=== PATIENT | male | born 1960 | race Caucasian/White ===

== ENCOUNTER → 2017-02-01 | Outpatient (CLI) | payer OTHER ==
[~2017-02-01] MED LIST: ACETAMINOPHEN PO; CARAFATE1 GM; CIPRO PO; IBUPROFEN800 MG PO; MOTRIN400 MG PO; PEPCID AC20 M2 PO; PROTONIX PO; VICODIN 5/1 TAB 5/50 PO
[2017-02-01 17:37] LABS: HEMATOCRIT 44.4 % (38.0-50.0); HEMOGLOBIN 15.1 gm/dL (13.0-16.0); MEAN CELL VOLUME 96.4 FL (83-96); MEAN CORPUSCULAR HEMOGLOBIN 32.7 PG (28-34); MEAN PLATELET VOLUME 9.5 FL (6.5-11.5); RED BLOOD COUNT 4.6 X10e (3.90-5.60); RED CELL DISTRIBUTION WIDTH 13.2 % (11.0-15.5); WHITE BLOOD COUNT 8.8 X10e3 (4.0-10.5)
[2017-02-01 17:39] LABS: URINE APPEARANCE CLEAR; URINE BILIRUBIN NEG (NEG); URINE BLOOD 2+ (NEG); URINE COLOR YELLOW; URINE GLUCOSE NEG (NEG); URINE KETONE NEG (NEG); URINE LEUKOCYTE ESTERASE NEG (NEG); URINE NITRATE NEG (NEG); URINE PH 6.5 (5-8); URINE PROTEIN NEG (NEG); URINE SPECIFIC GRAVITY 1.017 (1.003-1.035)
[2017-02-01 17:42] LABS: U HYALINE CASTS AUWI 0-2 /[LPF]; URINE BACTERIA AUWI NEG (NEGATIVE); URINE SQUAMOUS EPITHELIAL CELL NONE SEEN /[HPF]; UWBCS1 AUWI 0-2 (0-5)
[2017-02-01 17:59] LABS: ALBUMIN SERUM 4.1 g/dL (3.5-5.0); BILIRUBIN,TOTAL 0.7 mg/dL (0.2-2.0); CALCIUM SERUM 8.7 mg/dL (8.4-10.2); POTASSIUM 3.9 mmol/L (3.5-5.1)
== END | disposition home or self-care (01) ==
LOC: CLAB 17:11
PROVIDERS: Specialist
DX: R10.9 Unspecified abdominal pain (principal)
CPT/HCPCS: 36415; 80053; 81003; 85027

== ENCOUNTER → 2017-02-02 | Outpatient (CLI) | payer OTHER ==
--- NOTE | ~2017-02-02 | CT4 ---
[facility] A Service of [facility] RADIOLOGY TEXT RESULTS PATIENT: SHIRLEY MURILLO LOCATION: [facility] : 64 UNIT #: [id number] AGE: [address]: Eric Lou MD SEX: M ORDER DR: [id number] [facility] [address] [place], [place] [address] [id number] O MR#: [id number] [facility] #: [id number] NAME: SHIRLEY MURILLO : 1960 SEX: M STUDY DATE/TIME: 02/02/2017 9:15 UNIT: [facility] ROOM: STUDY DESCRIPTION: CT Abd and Pelv Wo Cont Attending Physician: Eric Lou M.D. Referring Physician: Eric Lou M.D. Ordering Physician: Eric Lou M.D. Primary Care Physician: Shelia Stanford M.D. MEDICAL IMAGING REPORT This report is preliminary unless electronic signature is present EXAM CT abdomen and pelvis 02/02/2017 HISTORY Kidney stones. Right flank pain for 48 hours. Pain similar to previous stones. TECHNIQUE CT abdomen and pelvis performed without administration of oral or intravenous contrast. This CT exam was performed with one or more of the following radiation dose reduction techniques: automatic exposure control, adjustment of mA and/or kV according to patient size, and iterative reconstruction. COMPARISON 09/28/2011 FINDINGS The lung bases are clear. The inferior heart and pericardium are unremarkable. Liver normal. Status post cholecystectomy. Spleen, pancreas, adrenal glands unremarkable. The left kidney and ureter are unremarkable. Right kidney shows a 1 cm x 5 mm calculus in the mid-right kidney. Not significantly changed from prior examination. No right-sided hydronephrosis, hydroureter or ureterolithiasis. No calculi along the course of the urethra. CT Pelvis: No inguinal adenopathy. No pelvic or retroperitoneal adenopathy. The distal esophagus, stomach, small bowel, appendix unremarkable. Colon shows uncomplicated left hemicolon diverticulosis. Scattered atherosclerotic arterial calcifications. No acute-appearing bony abnormality. Degenerative changes in the spine. IMPRESSION [facility] A Service of [facility] RADIOLOGY TEXT RESULTS PATIENT: SHIRLEY MURILLO LOCATION: [facility] : 64 UNIT #: [id number] AGE: [address]: Eric Lou MD SEX: M ORDER DR: 1. No evidence of urinary obstruction. There is an approximately 1 cm x 5 mm and the right mid renal calculus unchanged from September 2011. No ureteral or bladder calculi are seen. No perinephric inflammatory change. 2. Status post cholecystectomy. 3. Pancreas and appendix unremarkable. 4. Uncomplicated left hemicolon diverticulosis. 5. Remainder of study unremarkable. Dictated by... Shirley Cabrera M.D. THIS IS AN ELECTRONICALLY VERIFIED REPORT Shirley Cabrera M.D. at 02/03/2017 6:36 PM ADELINEK/juancarlos TD: 02/02/2017 11:57 JOB #: [id number] MEDICAL IMAGING REPORT Page 1 of 1 COPY
== END | disposition home or self-care (01) ==
LOC: CCAT 08:59
DX: N20.0 Calculus of kidney (principal); K57.30 Diverticulosis of large intestine without perforation or abscess without bleeding; Z90.49 Acquired absence of other specified parts of digestive tract
CPT/HCPCS: 74176

== ENCOUNTER → 2017-02-05 | Outpatient (CLI) | payer OTHER ==
--- NOTE | ~2017-02-05 | CR7 ---
[facility] A Service of [facility] RADIOLOGY TEXT RESULTS PATIENT: SHIRLEY MURILLO LOCATION: [facility] : 64 UNIT #: [id number] AGE: [address]: Eric Le MD SEX: M ORDER DR: [id number] [facility] [address] [place], [place] [address] [id number] O MR#: [id number] Acc #: [id number] NAME: SHIRLEY MURILLO : 1960 SEX: M STUDY DATE/TIME: 02/05/2017 11:42 UNIT: [facility] ROOM: STUDY DESCRIPTION: CR Abdomen Single AP View Attending Physician: Eric Le M.D. Referring Physician: Eric Le M.D. Ordering Physician: Eric Le M.D. Primary Care Physician: Shelia Stanford M.D. MEDICAL IMAGING REPORT This report is preliminary unless electronic signature is present EXAM AP of the abdomen. INDICATION 56-year-old male with kidney stones. Right flank pain for 6 days. COMPARISON STUDIES Compared with CT of the abdomen and pelvis from today. FINDINGS There are 2 stones next to each other within the lower pole of the right kidney. They measure about 5-6 mm. No other radiopaque stones. Phleboliths in the pelvis. Cholecystectomy. IMPRESSION 2 stones in the lower pole of the right kidney measuring about 5- 6 mm. Dictated by... Sean Givens M.D. THIS IS AN ELECTRONICALLY VERIFIED REPORT Sean Givens M.D. at 02/05/2017 9:51 PM OMAR/hien TD: 02/05/2017 17:13 JOB #: [id number] MEDICAL IMAGING REPORT Page 1 of 1 COPY
--- NOTE | ~2017-02-05 | CT2 ---
[facility] A Service of [facility] RADIOLOGY TEXT RESULTS PATIENT: SHIRLEY MURILLO LOCATION: [facility] : 64 UNIT #: [id number] AGE: [address]: Eric Le MD SEX: M ORDER DR: [id number] [place] [id number] [facility] [place], [place] [address] [id number] O MR#: [id number] Acc #: [id number] NAME: SHIRLEY MURILLO : 1960 SEX: M STUDY DATE/TIME: 02/05/2017 13:01 UNIT: [facility] ROOM: STUDY DESCRIPTION: CT Abd and Pelv W Cont Attending Physician: Eric Le M.D. Referring Physician: Eric Le M.D. Ordering Physician: Eric Le M.D. Primary Care Physician: Shelia Stanford M.D. MEDICAL IMAGING REPORT This report is preliminary unless electronic signature is present EXAM CT of abdomen and pelvis. DATE OF EXAM 02/05/2017 INDICATIONS Microscopic hematuria. Pain in the right flank. Renal calculi on the 02/02/[address] of the abdomen and pelvis with p.o. and IV contrast (100 mL Isovue-370 IV contrast). Coronal and sagittal reconstructions were obtained. NOTE: This CT exam was performed with one or more of the following radiation dose reduction techniques: automatic exposure control, adjustment of mA and/or kV according to patient size, and iterative reconstruction. COMPARISON CT of abdomen dated 02/02/2014. FINDINGS ABDOMEN: There is a feature suggesting background liver cirrhosis, however, this is not definitive. The undersurface of the liver is nodular, and there is some periportal atrophy. Gallbladder is surgically absent. No intrahepatic or extrahepatic biliary dilatation. The pancreas, spleen, and adrenal glands are within normal limits. There is nonobstructing calculi in the mid to lower right kidney. These calculi measure up to 1.1 cm. There is no hydronephrosis or ureteral calculi. The bowel is not dilated. The appendix is normal. [facility] A Service of [facility] RADIOLOGY TEXT RESULTS PATIENT: SHIRLEY MURILLO LOCATION: [facility] : 64 UNIT #: [id number] AGE: [address]: Eric Le MD SEX: M ORDER DR: The abdominal aorta is normal in caliber. PELVIS: Bladder is unremarkable. No enlarged pelvic or renal lymph nodes. No acute osseous abnormalities. IMPRESSION 1. Nonobstructing right renal calculi. 2. No acute findings in the abdomen or pelvis. Dictated by... Xavier Domínguez M.D. THIS IS AN ELECTRONICALLY VERIFIED REPORT Xavier Domínguez M.D. at 02/05/2017 4:19 PM KEN/mendel TD: 02/05/2017 16:04 JOB #: [id number] MEDICAL IMAGING REPORT Page 1 of 1 COPY
== END | disposition home or self-care (01) ==
LOC: CRAD 11:20
DX: N20.0 Calculus of kidney (principal)
CPT/HCPCS: 74000; 74177; Q9967